=== PATIENT | male | born 1980 | race Caucasian/White ===

== ENCOUNTER 2016-09-05 19:23 | Emergency (ER) | payer SELFPAY ==
[2016-09-05 19:31] VITALS: BP 129/59
--- NOTE | 2016-09-05 21:49 | ER Document Report ---
ED Medical Screen (RME) - General Chief Complaint: Mouth Injury Stated Complaint: MOUTH/JAW PAIN Time Seen by Provider: 09/05/16 21:38 Mode of Arrival: Medic Notes: Patient is a 36-year-old male who presents the office by EMS complaining of an injury to his jaw and his nose. The incident occurred this afternoon. Patient was jumping into a pool when his head collided with another person's head. Pt states that he fractured his molars to his superior left jaw along with a fake tooth (#10). Pt states that he was bleeding from his mouth and nose prior to arrival. He states he is no longer bleeding but has pain along his cheek, nose , and mouth. Pt denies any LOC, change in vision/mentation, cp, sob, dyspnea, abd, n/v. No significant PMH No medications Allergy to ASA (hematemesis) No surgeries - Related Data Allergies/Adverse Reactions: aspirin Adverse Reaction (Verified 09/05/16 19:28) VOMITING Past Medical History Renal/ Medical History: Denies: Hx Peritoneal Dialysis Physical Exam - Vital signs Vitals: Temp Pulse Resp BP Pulse Ox 98.4 F 114 H 16 129/59 H 99 09/05/16 19:28 09/05/16 19:28 09/05/16 19:28 09/05/16 19:28 09/05/16 19:28 - HEENT Head: Normocephalic, Tenderness - + tenderness to the left zygomatic and infraorbital area. + tenderness to his nasal bone/soft tissue., Other - + mild swelling to the left zygomatic compared to the right.. No: [place]'s eyes Eyes: Normal Conjunctiva: Normal Pupils: PERRL Ears: Normal External canal: Normal Tympanic membrane: Normal Sinus: Tenderness - left side (bony). Nasal: Other - see above. Small amount of dried blood in nasal passage. Mouth/Lips: Caries, Dental fracture. No: Other - no bleeding, laceration noted. mild gingivitis noted throughout. + tenderness to palp of left superior molars. Mucous membranes: Normal Pharynx: Normal Neck: Normal - Non-tender. spurling negative. Course - Vital Signs Vital signs: Temp Pulse Resp BP Pulse Ox 98.4 F 114 H 16 129/59 H 99 09/05/16 19:28 09/05/16 19:28 09/05/16 19:28 09/05/16 19:28 09/05/16 19:28
[2016-09-05] MEDS ORDERED: ONDANSETRON 4 MG TAB.RAPDIS PO ONE (21:58)
[2016-09-05] MEDS ORDERED: OXYCODONE-ACETAMINOPHEN 5-325 MG TABLET PO ONE (21:58)
[2016-09-05] MEDS ORDERED: CLINDAMYCIN HCL 150 MG CAPSULE PO ONE (21:58)
--- NOTE | 2016-09-05 21:59 | ER Document Report ---
HPI - HPI Patient complains to provider of: dental pain and face injury Onset: This evening - 5 pm Onset/Duration: Sudden Pain Level: 4 Context: 36 yo smoker male jumped off side of pool deck, someone else coming up and ended hitting with nose, broke teeth, and left side of face about 5 pm tonight. Lost some teeth. Took motrin and it didn't help the pain. Also has sore throat and has clogged nose. Cough this evening. No surgeries or chronic medical problems. Associated Symptoms: None Exacerbated by: Denies Relieved by: Denies - ROS ROS below otherwise negative: Yes - DERM Skin Color: Normal Past Medical History - General Information source: Patient - Social History Smoking Status: Current Every Day Smoker Frequency of alcohol use: None Drug Abuse: None Lives with: Parents - mom Family History: Reviewed & Not Pertinent - Medical History Medical History: Negative Renal/ Medical History: Denies: Hx Peritoneal Dialysis Vertical Provider Document - CONSTITUTIONAL Agree With Documented VS: Yes Exam Limitations: No Limitations General Appearance: No Apparent Distress - HEENT HEENT: Atraumatic, Normocephalic Notes: extensive dental decay, tooth loss, and gingivitis and pulpitis throughout his mouth. No abscess felt. No adenopathy. No septal nasal hematoma. mild tender left zygoma. - NECK Neck: Supple. negative: Lymphadenopathy-Left, Lymphadenopathy-Right - RESPIRATORY Respiratory: Breath Sounds Normal, Wheezing - Faint expiratory on the left O2 Sat by Pulse Oximetry: 99 - CARDIOVASCULAR Cardiovascular: Regular Rate, Regular Rhythm - MUSCULOSKELETAL/EXTREMETIES Musculoskeletal/Extremeties: MAEW, FROM - NEURO Level of Consciousness: Awake, Alert, Appropriate - DERM Integumentary: Warm, Dry, No Rash Course - Re-evaluation Re-evalutation: 09/05/16 23:31 ct broken teeth, no facial bone fx, chronic sinus changes will send to dentist. - Vital Signs Vital signs: Temp Pulse Resp BP Pulse Ox 98.4 F 114 H 16 129/59 H 99 09/05/16 19:28 09/05/16 19:28 09/05/16 19:28 09/05/16 19:28 09/05/16 19:28 Discharge - Discharge Clinical Impression: Facial contusion, Dental pain and decay, Tooth loss, chronic sinus inflammation Condition: Good Disposition: HOME, SELF-CARE Instructions: Stop Smoking ([facility]), Toothache ([facility]), Dentist, Clindamycin ([facility]), Dental Infection or Abscess ([facility]), Ultram ([facility]) Additional Instructions: stop smoking see dentist to er if worse Prescriptions: Clindamycin HCl [Cleocin 150 mg Capsule] 300 mg PO TID #42 capsule Tramadol HCl [Ultram 50 mg Tablet] 50 mg PO ASDIR PRN #20 tablet PRN Reason:
--- NOTE | 2016-09-05 23:27 | RADIOLOGY REPORT (SQ) ---
EXAM DESCRIPTION: CT FACIAL AREA WITHOUT COMPLETED DATE/TIME: 09/05/2016 10:54 pm REASON FOR STUDY: Face injury, fractured teeth, Left side COMPARISON: None. TECHNIQUE: Noncontrasted images through the facial bones and orbits windowed for bone and soft tissu e. Additional coronal and sagittal reconstructed images reviewed. All images stored on PACS. All CT scanners at this facility use dose modulation, iterative reconstruction, and/or weight based d osing when appropriate to reduce radiation dose to as low as reasonably achievable (ALARA). [facility]: Dose Right [facility]: CareDose [facility]: Dose Right [facility]: Teradose 4D [facility]: [employer] RADIATION DOSE: 30.40 mGy. LIMITATIONS: None. FINDINGS: FACIAL BONES: No fracture or bone lesion. ORBITS: Intact. No fracture. Symmetric intact globes and retroorbital soft tissues. PARANASAL SINUSES: Mild maxillary mucosal thickening. SOFT TISSUES: No mass or edema. INFERIOR BRAIN: Limited view. No acute findings. OTHER: Multiple broken/absent teeth. IMPRESSION: Multiple broken/absent teeth. No facial bone fracture. Mild chronic maxillary sinus ch anges. TECHNICAL DOCUMENTATION: JOB ID: [id number] Quality ID # [id number]: Final reports with documentation of one or more dose reduction techniques (e.g., Au tomated exposure control, adjustment of the mA and/or kV according to patient size, use of iterative reconstruction technique) 2010 [employer]- All Rights Reserved
== END 2016-09-06 00:01 | disposition home or self-care (01) ==
LOC: ER 19:23
DX: S00.83XA Contusion of other part of head, initial encounter (principal); K08.119 Complete loss of teeth due to trauma, unspecified class; K02.9 Dental caries, unspecified; J32.9 Chronic sinusitis, unspecified; W51.XXXA Accidental striking against or bumped into by another person, initial encounter; Y93.11 Activity, swimming; F17.200 Nicotine dependence, unspecified, uncomplicated
CPT/HCPCS: 99283; 70486; S0119

== ENCOUNTER 2016-10-04 17:20 | Emergency (ER) | payer SELFPAY ==
[2016-10-04] MEDS ORDERED: BUPIVACAINE HCL 0.5 % INJ/PF 30 ML SDV INJ ONE (17:54)
[2016-10-04] MEDS ORDERED: CLINDAMYCIN HCL 150 MG CAPSULE PO ONE (17:54)
[2016-10-04] MEDS ORDERED: LIDOCAINE 1% INJ-PF (10 MG/ML) 30 ML SDV INJ ONE (17:54)
[2016-10-04] MEDS ORDERED: HYDROCODONE/ACETAMINOPHEN 5-325 MG 6 TAB/DSPK PO PRN (18:15)
--- NOTE | 2016-10-04 18:15 | ER Document Report ---
HPI - HPI Patient complains to provider of: toothache Onset: Yesterday Onset/Duration: Sudden Quality of pain: Achy, Stabbing, Throbbing Pain Level: 5 Associated Symptoms: Other - fractured teeth he is supposed to have pulled by dentist on Exacerbated by: Denies Relieved by: Denies Similar symptoms previously: Yes - beginning of september, treated with clinda with complete resolution of his sx's Recently seen / treated by doctor: Yes - CARDIOVASCULAR Cardiovascular: DENIES: Chest pain - DERM Skin Color: Normal Past Medical History - Social History Smoking Status: Current Every Day Smoker Chew tobacco use (# tins/day): No Frequency of alcohol use: Occasional Drug Abuse: None Family History: Reviewed & Not Pertinent Patient has suicidal ideation: No Patient has homicidal ideation: No Renal/ Medical History: Denies: Hx Peritoneal Dialysis Vertical Provider Document - CONSTITUTIONAL Agree With Documented VS: Yes Exam Limitations: No Limitations General Appearance: WD/WN, No Apparent Distress - INFECTION CONTROL TRAVEL OUTSIDE OF THE [place] IN LAST 30 DAYS: No - HEENT HEENT: Atraumatic, Normal ENT Exam, Normocephalic Mouth Diagram: 1 - abscess Notes: Uvula midline. Airway patent. No evidence of tonsillar enlargement, peritonsillar abscess, retropharyngeal abscess. - NECK Neck: Normal Inspection. negative: Lymphadenopathy-Left, Lymphadenopathy-Right - RESPIRATORY Respiratory: Breath Sounds Normal, No Respiratory Distress, Chest Non-Tender O2 Sat by Pulse Oximetry: 100 - CARDIOVASCULAR Cardiovascular: Regular Rate, Regular Rhythm, No Murmur - NEURO Level of Consciousness: Awake, Alert, Appropriate Motor/Sensory: No Motor Deficit, No Sensory Deficit Course - Re-evaluation Re-evalutation: 10/04/16 22:13 Patient is a 36-year-old male who is hemodynamic stable, no acute distress afebrile. Patient received a 5 cc Sensorcaine block with complete resolution of his pain. Site was incised and drained for approximately 5 cc of purulent material. Bleeding controlled. Patient tolerated the procedure well without any complications. Patient discharged home on antibiotics and to follow-up with dentist in 1 week. - Vital Signs Vital signs: Temp Pulse Resp BP Pulse Ox 98.4 F 58 L 16 143/97 H 100 10/04/16 17:33 10/04/16 17:33 10/04/16 17:33 10/04/16 17:33 10/04/16 17:33 Procedures - Incision and Drainage Left Face Type: Simple - dental abscess Anesthetic type: 0.5% Bupivacaine mL's of anesthetic: 5 Blade size: 11 Incision Method: Incision made with needle Mouth/Teeth picture: 1 - abscess Discharge - Discharge Clinical Impression: Tooth abscess Condition: Good Disposition: HOME, SELF-CARE Instructions: Abscess ([facility]), Post Incision and Drainage, Toothache ([facility]), Clindamycin ([facility]) Additional Instructions: Please follow-up with your dentist in 1 week. Take your medications as prescribed. Prescriptions: Clindamycin HCl 450 mg PO TID 7 Days Forms: Elevated Blood Pressure
[2016-10-04 18:49] VITALS: BP 147/102
== END 2016-10-04 18:46 | disposition home or self-care (01) ==
LOC: ER 17:20
PROC: 0C9WXZ0 Drainage of Upper Tooth, External Approach, Single (ICD-10-PCS; principal; 2016-10-04)
DX: K04.7 Periapical abscess without sinus (principal); F17.200 Nicotine dependence, unspecified, uncomplicated
CPT/HCPCS: 99282